=== PATIENT | male | born 2000 | race African-American/Black ===

== ENCOUNTER 2018-03-20 11:43 | Emergency (ER) | payer SELFPAY | END 2018-03-20 13:26 | disposition home or self-care (01) | LOC: ERS 11:43 | DX: J30.9 Allergic rhinitis, unspecified (principal); F17.210 Nicotine dependence, cigarettes, uncomplicated | CPT/HCPCS: 87804; 99283 ==

== ENCOUNTER 2019-03-22 15:03 | Emergency (ER) | payer SELFPAY ==
--- NOTE | 2019-03-22 16:52 | RAD ---
EXAM: Right foot: 3 views INDICATIONS: Foot pain COMPARISON: 12/12/2010 FINDINGS: Deformity at the talonavicular joint is a stable finding. Pes cavus is again noted. No frac ture or acute abnormality. 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 Past cavus. Findings appear stable.
--- NOTE | 2019-03-22 16:53 | RAD ---
EXAM: Right ankle: 3 views INDICATIONS: Pain COMPARISON: Foot films from 2011 FINDINGS: No soft tissue swelling. No fracture at the ankle. Deformity at the talonavicular joint is again noted. IMPRESSION: No acute finding
== END 2019-03-22 17:13 | disposition home or self-care (01) ==
LOC: ERS 15:03
DX: M25.571 Pain in right ankle and joints of right foot (principal); F17.210 Nicotine dependence, cigarettes, uncomplicated

== ENCOUNTER 2025-02-19 12:47 | Emergency (ER) | payer OTHER ==
[2025-02-19 13:39] LABS: #Basophils 0.03 10x3/uL (0.0-0.2); #Eosinophils 0.29 10x3/uL (0.0-0.7); #Monocytes 0.35 10x3/uL (0.11-0.59); #Neutrophils 3.13 10x3/uL (1.40-6.50); %Basophils 0.5 % (0.0-1.0); %Eosinophils 5.3 % (0.0-10.0); %Lymphocytes 30.8 % (21.0-51.0); %Monocytes 6.3 % (0.0-10.0); %Neutrophils 56.7 % (42.0-75.0); Hematocrit 41.7 % (42.0-52.0); Hemoglobin 13.1 g/dL (14.0-18.0); Mean Corpuscular Hemoglobin 25.8 pg (27.0-31.0); Mean Corpuscular Volume 82.1 fL (78.0-98.0); Platelet Count 310 10x3/uL (130-400); Red Blood Cell (RBC) Count 5.08 mill/uL (4.70-6.10); White Blood Cell (WBC) Count 5.52 10x3/uL (4.8-10.8)
[2025-02-19 13:56] LABS: ALT (SGPT) 15 U/L (Less than 45); AST (SGOT) 19 U/L (11-34); Albumin 4.0 g/dL (3.1-4.5); Alkaline Phosphatase 53 U/L (40-110); Anion Gap 10 mmol/L (10-20); BUN (Urea Nitrogen) 6 mg/dL (8.9-20.6); Bilirubin, Total 0.5 mg/dL (0.3-1.2); Calc. Creatinine Clearance 0 mL/min (70-130); Calcium 9.2 mg/dL (7.8-10.44); Carbon Dioxide 25 mmol/L (22-29); Chloride 107 mmol/L (98-107); Globulin 3.6 g/dL (2.4-3.5); Glucose 88 mg/dL (70-105); Potassium 3.8 mmol/L (3.5-5.1); Sodium 138 mmol/L (136-145)
[2025-02-19] MEDS ORDERED: Ketorolac Tromethamine 30 MG (1 mL) VIAL ONE (15:18)
== END 2025-02-19 18:31 | disposition home or self-care (01) ==
LOC: ERS 12:47
DX: R07.9 Chest pain, unspecified (principal); F17.290 Nicotine dependence, other tobacco product, uncomplicated; Z55.6 Problems related to health literacy
CPT/HCPCS: 71045; 80053; 84484; 85025; 93005; 96374; J1885